=== PATIENT | female | born 1985 | race Caucasian/White ===

== ENCOUNTER 2021-05-20 09:16 | Outpatient (CLI) | payer SELFPAY ==
[2021-05-20 16:52] LABS: BASOPHILS # (AUTO) 0.1 10^3/uL (0.0-0.1); EOSINOPHILS # (AUTO) 0.1 10^3/uL (0.0-0.7); EOSINOPHILS % (AUTO) 1.8 %; HCT - HEMATOCRIT 42.8 % (37.0-47.0); HGB - HEMOGLOBIN 13.9 g/dL (12.0-16.0); LYMPHOCYTES % (AUTO) 38.7 %; MEAN CORPUSCULAR HEMOGLOBIN 29.8 pg (27.0-31.0); MEAN CORPUSCULAR HGB CONC 32.5 g/dL (32.0-36.0); MEAN CORPUSCULAR VOLUME 91.6 fL (81.0-99.0); MEAN PLATELET VOLUME 12.3 fL (7.9-10.8); MONOCYTES # (AUTO) 0.4 10^3/uL (0.0-1.0); MONOCYTES % (AUTO) 5.5 %; NEUTROPHILS # (AUTO) 4.1 10^3/uL (1.5-6.6); NEUTROPHILS % (AUTO) 52.7 %; PLT - PLATELET COUNT 224 10^3/uL (130-450); RED BLOOD COUNT 4.67 10^6/uL (4.20-5.40); RED CELL DISTRIBUTION WIDTH 13.2 % (12.0-15.0); WHITE BLOOD COUNT 7.7 x10^3/uL (4.8-10.8)
[2021-05-20 17:10] LABS: ALBUMIN 4.1 g/dL (3.2-5.5); ALBUMIN/GLOBULIN RATIO 1.2 (1.0-2.2); ALKALINE PHOSPHATASE 60 IU/L (42-121); ALT ALANINE AMINOTRANSFERASE 15 IU/L (10-60); AST ASPARTATE AMINOTRANSFERASE 22 IU/L (10-42); BILIRUBIN,TOTAL 0.6 mg/dL (0.2-1.0); BUN - BLOOD UREA NITROGEN 11 mg/dL (6-20); CALCIUM 8.9 mg/dL (8.5-10.3); CARBON DIOXIDE - CO2 21 mmol/L (21-32); CHLORIDE 103 mmol/L (101-111); CHOL/HDL RATIO 4.9 (<4.4); CHOLESTEROL 190 mg/dL; CREATININE 0.7 mg/dL (0.4-1.0); GFR - MDRD 96 (>89); GLUCOSE 90 mg/dL (70-100); HDL CHOLESTEROL 39 mg/dL; LDL CHOLESTEROL,CALCULATED 124 mg/dL; LDL/HDL RATIO 3.2 (<4.4); POTASSIUM 4.2 mmol/L (3.5-5.0); SODIUM 135 mmol/L (135-145); TOTAL PROTEIN 7.6 g/dL (6.7-8.2); TRIGLYCERIDES 133 mg/dL; VLDL CHOLESTEROL 27 mg/dL
[2021-05-20 17:14] LABS: THYROID STIMULATING HORMONE 2.5 uIU/mL (0.34-5.60)
== END 2021-05-20 23:59 | disposition home or self-care (01) ==
LOC: LAB.R 09:16
PROVIDERS: ATTEND Internal Medicine
DX: F41.9 Anxiety disorder, unspecified (principal); Z13.6 Encounter for screening for cardiovascular disorders; M25.519 Pain in unspecified shoulder
CPT/HCPCS: 80053; 80061; 82306; 82607; 83721; 84443; 85025

== ENCOUNTER 2022-12-15 16:27 | Outpatient (CLI) | payer OTHER | END 2022-12-15 23:59 | disposition EMS.NT | LOC: EMS 16:27 | DX: F41.0 Panic disorder [episodic paroxysmal anxiety] (principal) ==

== ENCOUNTER 2023-09-18 09:17 | Outpatient (CLI) | payer OTHER ==
--- NOTE | 2023-09-18 11:59 | MRI Report ---
PROCEDURE: Shoulder RT WO INDICATIONS: R SHOULDER PAIN TECHNIQUE: Noncontrast oblique coronal T2 fast spin echo with fat saturation, oblique sagittal T1 spin echo and T2 fast spin echo with fat saturation, axial T1 spin echo and T2 fast spin echo with fat saturation t hrough the shoulder. COMPARISON: None. FINDINGS: Image quality: Excellent. Rotator cuff: Low-grade bursal surface partial-thickness tear involving distal supraspinatus at its i nsertion on humeral head is seen extending to musculotendinous junction. Distal infraspinatus tendino sis is noted. The subscapularis tendon is intact. No full-thickness rotator cuff tendon rupture. No r otator cuff muscle atrophy on sagittal images. Bones and bursae: No bone marrow contusions or fractures. There is likely postsurgical widening of a cromioclavicular joint, suggest clinical correlation. Small amount of subacromial subdeltoid bursal f luid is seen, no loose bodies. Capsule and soft tissues: In the absence of intra-articular contrast, the labrum and glenohumeral li gaments appear intact. The long head of the biceps tendon demonstrates normal location and morpholog y. The rotator interval appears normal, without fibrosis. The coracohumeral ligament is normal in t hickness. IMPRESSION: 1. Low-grade bursal surface partial-thickness tear involving distal supraspinatus extending to muscul otendinous junction. Distal infraspinatus tendinosis. No full-thickness rotator cuff tendon rupture. 2. Likely postsurgical widening of acromioclavicular joint suggests clinical correlation. This could also represent remote injury. Small amount of subacromial subdeltoid bursal fluid, no loose bodies. 3. No gross focal labral tear. Reviewed by: Jacob Fernandez MD on 09/18/2023 11:58 AM PDT Approved by: Jacob Fernandez MD on 09/18/2023 11:58 AM PDT Station ID: [id number]
== END 2023-09-18 09:18 | disposition home or self-care (01) ==
LOC: DI 09:17
PROVIDERS: ATTEND Internal Medicine
DX: M75.111 Incomplete rotator cuff tear or rupture of right shoulder, not specified as traumatic (principal)